=== PATIENT | female | born 1950 | race Caucasian/White ===

== ENCOUNTER → 2016-08-04 | Outpatient (CLI) | payer OTHER ==
[~2016-08-04] VITALS: Ht 165.1 cm; Wt 124.2 kg
[~2016-08-04] MED LIST: BIOFTAB PO; CELE200C PO; CIPR-9 PO; DEXTROSE 5% IN WATE 1000ML INJ 1,000 ML IV SCH; DOXY100T PO; FERR325T PO; INSULIN HUMAN REGULAR 1,000 UNITS/10 ML VIAL SQ PRN; LACTATED RINGER'S 1000 ML IV SCH; LEVO100T5 PO; LOSA50TA PO; MELO7.5T4 PO; METOPROLOL TARTRATE 25 MG TAB PO PRN; MILKSUS PO; MIRA33504 PO; MULT1TAB99 PO; PROPOFOL 200 MG/20 ML AMP IV ONE; PROT40TA PO; SODIUM CHLORID 0.9% 500 ML IV SCH; ZOFR4TAB3 SL; ferrous sulfate
[2016-08-04 06:00] VITALS: BP 116/55; PULSE 92; RESP 18; TEMP 97.8; O2SAT 97
[2016-08-04 08:06] VITALS: TEMP 97.6
--- NOTE | 2016-08-04 08:07 | EKG ---
Date Performed: 08/04/2016 Time Performed: 06:25:35 PTAGE: 65 years EKG: Sinus rhythm BORDERLINE LEFT AXIS DEVIATION BORDERLINE ECG NO PREVIOUS TRACING DOCTOR: Case Chery Interpretating Date/Time 08/04/2016 08:05:56
[2016-08-04 08:24] VITALS: BP 146/68; PULSE 61; RESP 16; O2SAT 93
--- NOTE | 2016-08-10 17:56 | MR ---
cc: FRANCISCO VASQUEZ MD DATE: 08/04/2016 PREOPERATIVE DIAGNOSIS 1. Family history colon cancer 2. Personal history of polyps. 3. Family history of polyps. 4. High risk screening. PROCEDURE: Attempted total colonoscopy to the ascending colon. PROCEDURE COURSE: The patient was brought to the colonoscopy suite and placed in the left lateral decubitus position. After IV sedation, digital examination was performed. The colonoscope was introduced into the anus and advanced through the colon. The patient was noted to have quite a bit of stool throughout the colon, particularly on the right side. I was able to enter the ascending colon, but multiple attempts to enter the cecum were unsuccessful. However eventually with the amount of stool, I felt that I was not able to get good visualization. There was a hint of possibly a small 2-3 mm polyp at the cecum but I could not visualize due to the stool. The colonoscope was then withdrawn with notation of extensive sequeira colonic diverticulosis but again visualization was incomplete due to the large stool burden. IMPRESSION Inadequate prep. PLAN We will attempt to finish off her prep today and see if we can reschedule her for tomorrow. Thank you very much MD MARIA DOLORES [place]/best /8:06 AM /5:42 PM MTDD
== END ==
LOC: HEND 05:51
PROVIDERS: ATTEND Colon & Rectal Surgery
DX: Z12.11 Encounter for screening for malignant neoplasm of colon (principal); Z80.0 Family history of malignant neoplasm of digestive organs; Z83.71 Family history of colonic polyps; Z86.010 Personal history of colon polyps; K57.30 Diverticulosis of large intestine without perforation or abscess without bleeding; I10 Essential (primary) hypertension
CPT/HCPCS: 93005

== ENCOUNTER → 2016-08-05 | Outpatient (CLI) | payer OTHER ==
[~2016-08-05] VITALS: Ht 165.1 cm; Wt 121.7 kg
[2016-08-05 14:47] VITALS: BP 129/81; PULSE 93; RESP 18; TEMP 98.5; O2SAT 94
[2016-08-05 16:56] VITALS: TEMP 97.6
[2016-08-05 17:18] VITALS: BP 110/58; PULSE 81; RESP 16; O2SAT 100
== END ==
LOC: HEND 14:06
PROVIDERS: ATTEND Colon & Rectal Surgery
DX: Z12.11 Encounter for screening for malignant neoplasm of colon (principal); Z80.0 Family history of malignant neoplasm of digestive organs; Z86.010 Personal history of colon polyps; K57.30 Diverticulosis of large intestine without perforation or abscess without bleeding; I10 Essential (primary) hypertension

== ENCOUNTER 2016-11-18 15:39 | Observation (INO) | payer OTHER ==
[~2016-11-18] VITALS: Ht 165.1 cm; Wt 123.0 kg
[~2016-11-18 15:39] MED LIST changes: -CELE200C PO; -DEXTROSE 5% IN WATE 1000ML INJ 1,000 ML IV SCH; -DOXY100T PO; -FERR325T PO; -INSULIN HUMAN REGULAR 1,000 UNITS/10 ML VIAL SQ PRN; -LACTATED RINGER'S 1000 ML IV SCH; -METOPROLOL TARTRATE 25 MG TAB PO PRN; -PROPOFOL 200 MG/20 ML AMP IV ONE; -PROT40TA PO; -SODIUM CHLORID 0.9% 500 ML IV SCH; -ZOFR4TAB3 SL; -ferrous sulfate
[2016-11-18 15:40] VITALS: BP 128/60; PULSE 118; RESP 20; TEMP 98.1; O2SAT 94
--- NOTE | 2016-11-18 16:12 | PD ---
Physical Exam Date Seen by Provider: November 18, 2016 Time Seen by Provider: 16:10 Narrative Pt presents for evaluation of rectal bleeding and dark stools. Pt states she has had a drop in hemoglobin from 12->8. Pt states she is passing blood clots. Pt reports slight dizziness, no SOB. No excessive use of NSAID's or ASA. VSS, awaiting bed placement. Pt sent by her PCP Ramakrishna. Data Data Last Documented VS Vital Signs Date Time Temp Pulse Resp B/P Pulse Ox O2 Delivery O2 Flow Rate FiO2 11/18/16 15:40 98.1 118 20 128/60 94 Room Air MDM Supervised Visit with MARTINA: Liseth Yoder November 18, 2016 16:12
[2016-11-18 18:16] LABS: BASOPHIL # 0.1 TH/MM3 (0-0.2); BASOPHIL % 0.6 % (0.0-2.0); EOSINOPHIL # 0.2 TH/MM3 (0-0.4); EOSINOPHIL % 1.5 % (0.0-4.0); HEMATOCRIT 30.1 % (35.0-46.0); HEMO FLAGS DIFF FINAL; LYMPH % 28.6 % (9.0-44.0); LYMPHOCYTE # 3.2 TH/MM3 (1.0-4.8); MEAN CELL VOLUME 88.2 FL (80.0-100.0); MEAN CORPUSCULAR HEMOGLOBIN 28.2 PG (27.0-34.0); MONO % 6.4 % (0.0-8.0); NEUT % 62.9 % (16.0-70.0); PLATELET COUNT 223 TH/MM3 (150-450); RED BLOOD COUNT 3.41 MIL/MM3 (4.00-5.30); RED CELL DISTRIBUTION WIDTH 15.4 % (11.6-17.2); WHITE BLOOD COUNT 11.2 TH/MM3 (4.0-11.0)
--- NOTE | 2016-11-18 18:27 | PD ---
HPI Chief Complaint: Bleeding Time Seen by Provider: 17:16 Travel History International Travel<30 days: No Contact w/Intl Traveler<30days: No Traveled to known affect area: No History of Present Illness HPI This is a 66 year old female who presents with rectal bleeding. The patient went to her primary care physician today for a urinary tract infection one week ago. Towards the end of her course of ciprofloxacin she started to notice bright red blood in the toilet. She denies any abdominal pain, diarrhea, fevers , or chills. Pt. does report more fatigue than usual. Her primary care physician did a digital rectal exam today and noted bright bloody stool. He noted that her hbg went 12.4 ->8.6. PFSH Past Medical History Cancer: No Cardiovascular Problems: Yes Diabetes: No Diminished Hearing: No Endocrine: No Genitourinary: No Hepatitis: No Hiatal Hernia: No Hypertension: Yes Immune Disorder: No Musculoskeletal: Yes (OA) Neurologic: No Psychiatric: No Reproductive: No Respiratory: No Immunizations Current: Yes Thyroid Disease: Yes Menopausal: Yes Past Surgical History Surgical History: No Previous Surgery AICD: No Joint Replacement: No Pacemaker: No Social History Alcohol Use: Yes (OCCASIONALLY) Tobacco Use: No Substance Use: No Allergies-Medications (Allergen,Severity, Reaction): Coded Allergies: No Known Allergies (Verified , 11/18/16) Reported Meds & Prescriptions Reported Meds & Active Scripts Active Meloxicam 7.5 Mg Tab 7.5 Mg PO DAILY Reported Hair Skin and Nails Formu (Multiple Vitamins W/ Minerals) 1 Tab Tab 2 Tab PO DAILY Bioflex (Bioflavonoid Products) 1 Tab 1 Tab PO DAILY Levothyroxine (Levothyroxine Sodium) 100 Mcg Tab 100 Mcg PO DAILY Losartan (Losartan Potassium) 50 Mg Tab 50 Mg PO DAILY Review of Systems Except as stated in HPI: all other systems reviewed are Neg Physical Exam Narrative GENERAL:Well appearing, no acute distress SKIN: Focused skin assessment warm and dry. HEAD: Atraumatic. Normocephalic. EYES: Pupils equal and round. No injection or drainage. ENT: Moist mucous membranes NECK: Trachea midline. CARDIOVASCULAR: Regular rate and rhythm. No murmur appreciated. RESPIRATORY: Clear to auscultation. Breath sounds equal bilaterally. GASTROINTESTINAL: Abdomen soft, non-tender, nondistended. MUSCULOSKELETAL: No obvious deformities. NEUROLOGICAL: Awake and alert. No obvious cranial nerve deficits.Moving all extremities. PSYCHIATRIC: Appropriate mood and affect; insight and judgment normal. Data Data Last Documented VS Vital Signs Date Time Temp Pulse Resp B/P Pulse Ox O2 Delivery O2 Flow Rate FiO2 11/18/16 18:49 94 18 122/66 95 11/18/16 15:40 98.1 Room Air Orders Complete Blood Count With Diff (11/18/16 17:16) Comprehensive Metabolic Panel (11/18/16 17:16) ^ Insert Iv (11/18/16 17:16) Prothrombin Time / Inr (Pt) (11/18/16 17:16) Act Partial Throm Time (Ptt) (11/18/16 17:16) Type And Screen (11/18/16 17:16) Admit Order (Ed Use Only) (11/18/16 18:59) Labs Laboratory Tests Test 11/18/16 18:00 White Blood Count 11.2 TH/MM3 Red Blood Count 3.41 MIL/MM3 Hemoglobin 9.6 GM/DL Hematocrit 30.1 % Mean Corpuscular Volume 88.2 FL Mean Corpuscular Hemoglobin 28.2 PG Mean Corpuscular Hemoglobin 32.0 % Concent Red Cell Distribution Width 15.4 % Platelet Count 223 TH/MM3 Mean Platelet Volume 9.8 FL Neutrophils (%) (Auto) 62.9 % Lymphocytes (%) (Auto) 28.6 % Monocytes (%) (Auto) 6.4 % Eosinophils (%) (Auto) 1.5 % Basophils (%) (Auto) 0.6 % Neutrophils # (Auto) 7.0 TH/MM3 Lymphocytes # (Auto) 3.2 TH/MM3 Monocytes # (Auto) 0.7 TH/MM3 Eosinophils # (Auto) 0.2 TH/MM3 Basophils # (Auto) 0.1 TH/MM3 CBC Comment DIFF FINAL Differential Comment Prothrombin Time 10.8 SEC Prothromb Time International 1.0 RATIO Ratio Activated Partial 24.4 SEC Thromboplast Time Sodium Level 142 MEQ/L Potassium Level 4.2 MEQ/L Chloride Level 108 MEQ/L Carbon Dioxide Level 26.9 MEQ/L Anion Gap 7 MEQ/L Blood Urea Nitrogen 18 MG/DL Creatinine 0.72 MG/DL Estimat Glomerular Filtration 81 ML/MIN Rate Random Glucose 80 MG/DL Calcium Level 8.7 MG/DL Total Bilirubin 0.3 MG/DL Aspartate Amino Transf 47 U/L (AST/SGOT) Alanine Aminotransferase 48 U/L (ALT/SGPT) Alkaline Phosphatase 86 U/L Total Protein 7.3 GM/DL Albumin 3.5 GM/DL Blood Type O POSITIVE Antibody Screen NEGATIVE Blood Bank Comment MDM Medical Decision Making Medical Screen Exam Complete: Yes Emergency Medical Condition: Yes Interpretation(s) afebrile, tachycardic, normotensive leukocytosis anemia Electrolytes are reassuring Differential Diagnosis Diverticulosis, hemorrhoids, polyp, colon cancer Narrative Course This is a 66-year-old female who presents to the emergency department with rectal bleeding. She evidently has a hemoglobin that has trended down from 12- 9. She is placed on a monitor and an IV was established. Labs are consistent with anemia. Patient will be admitted for likely colonoscopy and serial hemoglobin checks. Physician Communication Physician Communication Discussed with Dr. Nolen Diagnosis Primary Impression: Rectal bleeding Admitting Information Admitting Physician Requests: Observation Elayne Clark MD November 18, 2016 18:27
[2016-11-18 18:32] LABS: APTT (PATIENT) 24.4 SEC (24.3-30.1); PROTHROMBIN TIME - PATIENT 10.8 SEC (9.8-11.6)
[2016-11-18 18:35] LABS: ALT (GPT) 48 U/L (10-53); ANION GAP 7 MEQ/L (5-15); AST (GOT) 47 U/L (15-37); BICARBONATE 26.9 MEQ/L (21.0-32.0); BLOOD UREA NITROGEN 18 MG/DL (7-18); CHLORIDE 108 MEQ/L (98-107); GLOMERULAR FILTRATION RATE 81 ML/MIN (>89); POTASSIUM 4.2 MEQ/L (3.5-5.1); SODIUM (NA) 142 MEQ/L (136-145)
[2016-11-18 18:37] LABS: ALKALINE PHOSPHATASE 86 U/L (45-117); TOTAL BILIRUBIN ADULT 0.3 MG/DL (0.2-1.0)
[2016-11-18 18:49] VITALS: BP 122/66; PULSE 94; RESP 18; O2SAT 95
--- NOTE | 2016-11-18 19:16 | HHI.HP ---
HPI Service Family Medicine Attending: Dr. Torres Primary Care Physician Franco Melton MD Admission Diagnosis rectal bleeding Diagnoses: International Travel<30 Days: No Contact w/Intl Traveler<30days: No Known Affected Area: No History of Present Illness 66yo female presented to ED, sent from Family Medicine office with rectal bleeding. The patient was seen at our clinic last Tuesday for a UTI, which was treated with Cipro and has since resolved. At that time, she discussed using Miralax or Milk of Magnesia for constipation, which has been an issue since her July colonoscopy, which was normal per patient. A family member of the patient had Colace, so she took that instead on Tuesday. On Tuesday, she noticed dark stool with blood mixed in. She continued to take the Colace on Tuesday and Tuesday, and then stopped. She did not take Miralax or Milk of Magnesia. Her dark stools with blood mixed in persisted, and yesterday and today she noticed dime-sized clots in her stool. She reports increased frequency of stools (2-3/day) and increased rectal urgency. The patient's mother was diagnosed with colon cancer at age 60 and from this shortly after diagnosis. She denies daily use of anti-coagulant medications, but reports periodic use of aspirin. She denies nausea, vomiting, abdominal pain , pain with bowel movements, fever, chills, or weight loss. Fingerstick Hemoglobin in [facility] office today was 8.6 (hemoglobin was 12.4 on 01/2016). Digital rectal exam today in office was notable for bright bloody stool. Review of Systems Constitutional: COMPLAINS OF: Fatigue, Dizziness, DENIES: Fever, Weight loss, Chills Eyes: DENIES: Blurred vision, Diplopia Respiratory: DENIES: Cough, Wheezing Cardiovascular: DENIES: Chest pain, Palpitations Gastrointestinal: COMPLAINS OF: Black stools, Bloody stools, Diarrhea, DENIES : Abdominal pain, Nausea, Vomiting Musculoskeletal: DENIES: Joint pain, Muscle aches, Stiffness Neurologic: DENIES: Headache, Paresthesias Other Past Family Social History Past Medical History Past Medical History: Hypertension Hypothyroidism Previous Surgeries: None Previous Injuries: Left foot fracture many years ago, details not recalled. Fractured pelvis 1966. Allergies: None Immunizations : Zostavax 12/20/12 Family history: Father age 67 ASCVD, mother age 60, colon cancer Patient is up-to-date with her colonoscopies, sees Dr. Shakira Obrien. Brother from lung cancer, one brother alive and well, one sister with fibromyalgia and multiple sclerosis. Son age 33 has insulin-dependent diabetes. Social history: Formally educated through one year of college. 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 Alcohol occasionally. Tobacco none, quit many years ago Illicit drugs: Denies Allergies: Coded Allergies: No Known Allergies (Verified , 11/18/16) Physical Exam Vital Signs Vital Signs Date Time Temp Pulse Resp B/P Pulse Ox O2 Delivery O2 Flow Rate FiO2 11/18/16 18:49 94 18 122/66 95 11/18/16 15:40 98.1 118 20 128/60 94 Room Air Physical Exam GENERAL: Sitting up in bed, NAD, well appearing SKIN: Warm and dry. No rashes. HEAD: Normocephalic. EYES: No scleral icterus. No injection or drainage. NECK: Supple, trachea midline. No JVD or lymphadenopathy. CARDIOVASCULAR: Tachycardic with normal rhythm. No murmurs. RESPIRATORY: Breath sounds equal bilaterally. No accessory muscle use. CTAB GASTROINTESTINAL: +BS. Abdomen soft, non-tender, nondistended. EXTREMITIES: No cyanosis, or edema. NEUROLOGICAL: Awake, alert, and oriented x 3. Non-focal. Laboratory Laboratory Tests Test 11/18/16 18:00 White Blood Count 11.2 Red Blood Count 3.41 Hemoglobin 9.6 Hematocrit 30.1 Mean Corpuscular Volume 88.2 Mean Corpuscular Hemoglobin 28.2 Mean Corpuscular Hemoglobin 32.0 Concent Red Cell Distribution Width 15.4 Platelet Count 223 Mean Platelet Volume 9.8 Neutrophils (%) (Auto) 62.9 Lymphocytes (%) (Auto) 28.6 Monocytes (%) (Auto) 6.4 Eosinophils (%) (Auto) 1.5 Basophils (%) (Auto) 0.6 Neutrophils # (Auto) 7.0 Lymphocytes # (Auto) 3.2 Monocytes # (Auto) 0.7 Eosinophils # (Auto) 0.2 Basophils # (Auto) 0.1 CBC Comment DIFF FINAL Differential Comment Prothrombin Time 10.8 Prothromb Time International 1.0 Ratio Activated Partial 24.4 Thromboplast Time Sodium Level 142 Potassium Level 4.2 Chloride Level 108 Carbon Dioxide Level 26.9 Anion Gap 7 Blood Urea Nitrogen 18 Creatinine 0.72 Estimat Glomerular Filtration 81 Rate Random Glucose 80 Calcium Level 8.7 Total Bilirubin 0.3 Aspartate Amino Transf 47 (AST/SGOT) Alanine Aminotransferase 48 (ALT/SGPT) Alkaline Phosphatase 86 Total Protein 7.3 Albumin 3.5 Blood Type O POSITIVE Antibody Screen NEGATIVE Blood Bank Comment Result Diagram: 11/18/16 1800 11/18/16 1800 Assessment and Plan Assessment and Plan 66 year old female who presents with rectal bleeding, anemia and increased stools after being on Ciprofloxacin 1 week ago for UTI which has now resolved. Code Status Full Discussed Condition With SDW Dr. Judy Clark Problem List: (1) Rectal bleeding Status: Acute Plan: Differential Diagnosis: Diverticulosis, hemorrhoids, C. Difficile, colon cancer -Afebrile, tachycardic, normotensive -CBC with Hg 9.6. Was 12.4 in January 2016 -Leukocytosis of 11.2 -CMP normal Plan: -GI consulted, likely Colonoscopy in am -Protonix 40mg IV daily -Recheck CBC in am -Hemoccult ordered -C. Difficile ordered -Zofran PRN -Tylenol PRN (2) Hypertension, benign Status: Chronic Plan: BP 122/66 Continue home Cozaar 50 mg daily (3) Hypothyroidism Status: Chronic Plan: Continue home Synthroid 100 mcg daily (4) Nutrition, metabolism, and development symptoms Status: Chronic Plan: Fluids: NS at 125 cc/hr Electrolytes: normal, recheck BMP in am Nutrition: regular diet for dinner, NPO after midnight with PO meds Problem Qualifiers (1) Hypothyroidism: Qualified Code: E03.9 - Hypothyroidism, unspecified type Yola Nolen MD November 18, 2016 19:16
[2016-11-18] MEDS ORDERED: PEG (High)/E-LYTE SOLN 4000 ML BTL PO ONE ×2 (19:45→19:48)
[2016-11-18] MEDS ORDERED: SODIUM CHLORIDE 0.9% FLUSH 10 ML FLUSH IV FLUSH PRN (19:45)
[2016-11-18] MEDS ORDERED: ONDANSETRON HCL 4 MG/2 ML VIAL IV PRN (20:00)
[2016-11-18 20:39] VITALS: BP 122/65; PULSE 93; RESP 18; TEMP 98.1; O2SAT 100
[2016-11-18] MEDS: SODIUM CHLOR 0.9% 1000 ML INJ 1,000 ML IV SCH (20:46)
[2016-11-18] MEDS: PANTOPRAZOLE SODIUM 40 MG VIAL IV SCH (20:46)
[2016-11-18 20:58] VITALS: BP 128/58; PULSE 95; RESP 18; TEMP 98.7; O2SAT 92
[2016-11-18] MEDS: SODIUM CHLORIDE 0.9% FLUSH 10 ML FLUSH IV FLUSH SCH (21:16)
[2016-11-18 23:29] LABS: C. DIFF EPI 027 PRESUMPTIVE NEGATIVE (NEGATIVE); C. DIFF TOXIN PCR NEGATIVE (NEGATIVE)
[2016-11-18 23:47] VITALS: BP 122/69; PULSE 92; RESP 18; TEMP 98.4; O2SAT 98
[2016-11-19] VITALS (7 sets, daily range): BP systolic 112–139; BP diastolic 51–68; PULSE 68–92; RESP 15–23; TEMP 96.1–97.9; O2SAT 94–98
[2016-11-19] MEDS: LEVOTHYROXINE SODIUM 100 MCG TAB PO SCH (06:06)
[2016-11-19] MEDS: SODIUM CHLOR 0.9% 1000 ML INJ 1,000 ML IV SCH ×2 (06:07→11:33)
[2016-11-19 07:21] LABS: AUTOMATED NEUTROPHIL # 5.4 TH/MM3 (1.8-7.7); BASOPHIL % 0.5 % (0.0-2.0); EOSINOPHIL # 0.2 TH/MM3 (0-0.4); EOSINOPHIL % 2.2 % (0.0-4.0); HEMATOCRIT 24.9 % (35.0-46.0); HEMO FLAGS DIFF FINAL; LYMPH % 26.8 % (9.0-44.0); LYMPHOCYTE # 2.3 TH/MM3 (1.0-4.8); MEAN CELL VOLUME 87.3 FL (80.0-100.0); MEAN CORPUSCULAR HGB CONC 33.2 % (32.0-36.0); MONO % 6.4 % (0.0-8.0); NEUT % 64.1 % (16.0-70.0); PLATELET COUNT 185 TH/MM3 (150-450); RED BLOOD COUNT 2.85 MIL/MM3 (4.00-5.30); RED CELL DISTRIBUTION WIDTH 15.5 % (11.6-17.2); WHITE BLOOD COUNT 8.5 TH/MM3 (4.0-11.0)
[2016-11-19 07:59] LABS: BICARBONATE 26.1 MEQ/L (21.0-32.0); POTASSIUM 3.6 MEQ/L (3.5-5.1)
[2016-11-19] MEDS: SODIUM CHLORIDE 0.9% FLUSH 10 ML FLUSH IV FLUSH SCH ×2 (08:00→21:00)
[2016-11-19] MEDS: PANTOPRAZOLE SODIUM 40 MG VIAL IV SCH (08:00)
[2016-11-19] MEDS: LOSARTAN 50 MG TAB PO SCH (08:00)
--- NOTE | 2016-11-19 08:16 | PD.CONS ---
HPI History of Present Illness This is a 66 year old female who presented to the ER for evaluation of rectal bleeding. She has a family hx of colon cancer (mother diagnosed at age 60) and gets regular colonoscopies. She has had colon polyps in the past, but reports she did not have any on her last colonoscopy. She had a screening colonoscopy in July and reports that her bowels have "not been right since." She states she has had some issues with constipation since her colonoscopy. The only new medication during this time was Synthroid. She started having bloody diarrhea last Tuesday, with 2-3 loose bowels mixed with bright red blood per day. She denies any associated nausea, vomiting, abdominal pain, rectal pain. She does have GERD and states that she typically has symptoms about twice a week and that she takes Pepcid AC as needed. This seems to work well for her. She is on Meloxicam, but does not take any other blood thinners. She denies recent travel, sick contacts, suspicious food. She was recently treated with Cipro x 5 days for a UTI last Tuesday. She denies any hx of PUD. (Malika Johnson) PFSH Past Medical History Hypertension Hypothyroidism Past Surgical History Colonoscopy [address] Obrien (Malika Johnson) Coded Allergies: No Known Allergies (Verified , 11/18/16) Medications Allergies Coded Allergies Type Severity Reaction Last Updated Verified No Known Allergies 11/18/16 Yes Active Scripts Medications Dose Route/Sig Days Date Category Meloxicam 7.5 Mg Tab 7.5 Mg PO DAILY 11/11/16 Rx Hair Skin and Nails Formu (Multiple Vitamins W/ Minerals) 1 Tab Tab 2 Tab PO DAILY 08/05/16 Reported Bioflex (Bioflavonoid Products) 1 Tab 1 Tab PO DAILY 08/05/16 Reported Levothyroxine (Levothyroxine Sodium) 100 Mcg Tab 100 Mcg PO DAILY 05/10/16 Reported Losartan (Losartan Potassium) 50 Mg Tab 50 Mg PO DAILY 05/10/16 Reported Family History Father from heart disease Mother age 60, colon cancer Brother from lung cancer, one brother alive and well, one sister with fibromyalgia and multiple sclerosis. Son age 33 has insulin-dependent diabetes. Social History No use of tobacco, occasional ETOH use. (Malika Johnson) Review of Systems Constitutional: DENIES: Fatigue, Fever, Weight loss, Chills, Change in appetite Cardiovascular: DENIES: Chest pain Gastrointestinal: COMPLAINS OF: Bloody stools, Constipation, Diarrhea, Heartburn, DENIES: Abdominal pain, Nausea, Vomiting, Swelling of Abdomen Musculoskeletal: COMPLAINS OF: Joint pain, Back pain Integumentary: DENIES: Rash Hematologic/lymphatic: DENIES: Bruising Neurologic: DENIES: Headache Psychiatric: DENIES: Confusion (Malika Johnson) GI Exam Vitals I&O Vital Signs Date Time Temp Pulse Resp B/P Pulse Ox O2 Delivery O2 Flow Rate FiO2 11/19/16 07:20 97.7 89 20 112/51 96 11/19/16 04:15 97.8 87 18 139/68 97 11/18/16 23:47 98.4 92 18 122/69 98 11/18/16 20:58 98.7 95 18 128/58 92 11/18/16 20:39 98.1 93 18 122/65 100 Room Air 11/18/16 18:49 94 18 122/66 95 11/18/16 15:40 98.1 118 20 128/60 94 Room Air I/O 11/18/16 11/18/16 11/18/16 11/19/16 11/19/16 11/19/16 06:59 14:59 22:59 06:59 14:59 22:59 # Voids 1 Laboratory Test 11/18/16 11/18/16 11/19/16 18:00 21:50 05:56 White Blood Count 11.2 TH/MM3 8.5 TH/MM3 Red Blood Count 3.41 MIL/MM3 2.85 MIL/MM3 Hemoglobin 9.6 GM/DL 8.3 GM/DL Hematocrit 30.1 % 24.9 % Mean Corpuscular Volume 88.2 FL 87.3 FL Mean Corpuscular Hemoglobin 28.2 PG 29.0 PG Mean Corpuscular Hemoglobin 32.0 % 33.2 % Concent Red Cell Distribution Width 15.4 % 15.5 % Platelet Count 223 TH/MM3 185 TH/MM3 Mean Platelet Volume 9.8 FL 10.2 FL Neutrophils (%) (Auto) 62.9 % 64.1 % Lymphocytes (%) (Auto) 28.6 % 26.8 % Monocytes (%) (Auto) 6.4 % 6.4 % Eosinophils (%) (Auto) 1.5 % 2.2 % Basophils (%) (Auto) 0.6 % 0.5 % Neutrophils # (Auto) 7.0 TH/MM3 5.4 TH/MM3 Lymphocytes # (Auto) 3.2 TH/MM3 2.3 TH/MM3 Monocytes # (Auto) 0.7 TH/MM3 0.5 TH/MM3 Eosinophils # (Auto) 0.2 TH/MM3 0.2 TH/MM3 Basophils # (Auto) 0.1 TH/MM3 0.0 TH/MM3 CBC Comment DIFF FINAL DIFF FINAL Differential Comment Prothrombin Time 10.8 SEC Prothromb Time International 1.0 RATIO Ratio Activated Partial 24.4 SEC Thromboplast Time Sodium Level 142 MEQ/L 144 MEQ/L Potassium Level 4.2 MEQ/L 3.6 MEQ/L Chloride Level 108 MEQ/L 108 MEQ/L Carbon Dioxide Level 26.9 MEQ/L 26.1 MEQ/L Anion Gap 7 MEQ/L 10 MEQ/L Blood Urea Nitrogen 18 MG/DL 14 MG/DL Creatinine 0.72 MG/DL 0.64 MG/DL Estimat Glomerular Filtration 81 ML/MIN 92 ML/MIN Rate Random Glucose 80 MG/DL 105 MG/DL Calcium Level 8.7 MG/DL 7.8 MG/DL Total Bilirubin 0.3 MG/DL Aspartate Amino Transf 47 U/L (AST/SGOT) Alanine Aminotransferase 48 U/L (ALT/SGPT) Alkaline Phosphatase 86 U/L Total Protein 7.3 GM/DL Albumin 3.5 GM/DL Blood Type O POSITIVE Antibody Screen NEGATIVE Blood Bank Comment Stool C. difficile Toxin (PCR) NEGATIVE Stl C. difficile Toxin PRESUMPTIVE Epiderm 027 NEGATIVE Date/Time Procedure Status Source Growth 11/18/16 21:50 Stool Occult Blood (AMINA) - Final Complete Stool Stool HEMOCCULT POSITIVE 11/18/16 19:50 Stool Occult Blood (AMINA) Received Stool Stool Pending Physical Examination HEENT: Normocephalic; atraumatic; no jaundice. CHEST: CTA CARDIAC: RRR ABDOMEN: Soft, nondistended, nontender; no hepatosplenomegaly; bowel sounds are present in all four quadrants. EXTREMITIES: No clubbing, cyanosis, or edema. SKIN: Normal; no rash; no jaundice. PURCHASING SUPERVISOR: No focal deficits; alert and oriented times three. (Malika Johnson) Assessment and Plan Plan ASSESSMENT: - GI Bleeding. Pt reports bloody diarrhea with bright red blood since Tuesday, having 2-3 episodes per day. Of note, she mentioned to the attending group that this started as black tarry stool and then went to bright red blood. She reports that there is a large amount with each bowel movement. She has a family hx of colon cancer and a personal hx of colon polyps and gets colonoscopies with Dr. Obrien q5 years. Her last colonoscopy was July of 2016 and she reports that she had diverticulosis but no polyps on this exam. She continued to have bloody bowel movements overnight. HH 8.3/24.9. PPI. - Diarrhea. Sudden onset with 2-3 bloody stools per day. No recent travel, suspicious food intake, sick contacts. (+) Cipro use last week for UTI. CDiff negative. - Anemia, acute blood loss. 8.3/24.9. - HTN, Hypothyroidism,per primary PLAN: - Plan for egd/colonoscopy today - Obtain consents - NPO - S/P Golytely prep - Monitor HH - Transfuse as necessary - Further recommendations to follow based on results of above - Pt seen and examined by Dr. Lozano and myself and this note is written on her behalf (Malika Johnson) Physician Comments seen, examined agree with above (Krystle Lozano MD) Malika Johnson November 19, 2016 08:16 Krystle Lozano MD November 19, 2016 17:16
--- NOTE | 2016-11-19 09:33 | HHI.FPPN ---
Subjective Remarks Patient was seen and evaluated this morning. She has been npo and received GoLYTELY bowel prep overnight and states her stools are still bloody. She was updated on her hemoglobin dropped from 9-8 approximately overnight. General neurology team evaluated the patient this morning and plan is to perform EGD as well as colonoscopy this morning. The patient does deny any new symptoms and denies fever, chills, abdominal pain, chest pain, shortness of breath. ( Charissa Obrien MD R1) Objective Vitals Vital Signs Date Time Temp Pulse Resp B/P Pulse Ox O2 Delivery O2 Flow Rate FiO2 11/19/16 09:15 97.8 79 18 126/56 95 11/19/16 07:20 97.7 89 20 112/51 96 11/19/16 04:15 97.8 87 18 139/68 97 11/18/16 23:47 98.4 92 18 122/69 98 11/18/16 20:58 98.7 95 18 128/58 92 11/18/16 20:39 98.1 93 18 122/65 100 Room Air 11/18/16 18:49 94 18 122/66 95 11/18/16 15:40 98.1 118 20 128/60 94 Room Air I/O 11/18/16 11/18/16 11/18/16 11/19/16 11/19/16 11/19/16 07:00 15:00 23:00 07:00 15:00 23:00 # Voids 1 (Charissa Obrien MD R1) Result Diagram: 11/19/16 0556 11/19/16 0556 Objective Remarks GENERAL: Patient is an obese elderly female lying in supine position in no apparent distress. SKIN: Warm and dry. No obvious rashes or bruises noted. HEAD: Atraumatic. Normocephalic. EYES: PEERL. No scleral icterus. No injection or drainage. ENT: No nasal bleeding or discharge. Mucous membranes pink and moist. No tonsillar swelling or erythema NECK: Trachea midline. No JVD. CARDIOVASCULAR: Regular rate and rhythm. No murmurs auscultated. Pulses 2+ in upper and lower extremities bilaterally. EKG evaluated at bedside showing normal sinus rhythm RESPIRATORY: No accessory muscle use. Clear to auscultation without crackles or wheezes. Breath sounds equal bilaterally. GASTROINTESTINAL: Abdomen obese, soft, no tenderness to palpation today. Bowel sounds are normal in all 4 quadrants. Spleen and liver margins not palpable MUSCULOSKELETAL: Extremities without clubbing, cyanosis, or edema. No obvious deformities. NEUROLOGICAL: Awake and alert. No obvious cranial nerve deficits. Motor grossly within normal limits. Five out of 5 muscle strength in the arms and legs. Normal speech. PSYCHIATRIC: Appropriate mood and affect; insight and judgment normal. Medications and IVs Inpatient Medications Acetaminophen (Tylenol) 650 mg Q4H PRN PO Temp > 100.4; Start 11/18/16 at 20:00 Levothyroxine Sodium (Synthroid) 100 mcg DAILY@06 PO Last administered on 06:06; Start 11/19/16 at 06:00 Losartan Potassium (Cozaar) 50 mg DAILY PO Last administered on 11/19/16 08:00 ; Start 11/19/16 at 09:00 Ondansetron HCl (Zofran Inj) 4 mg Q6H PRN IV NAUSEA; Start 11/18/16 at 20:00 Pantoprazole Sodium (Protonix Inj) 40 mg DAILY IV Last administered on 08:00; Start 11/18/16 at 20:00 Polyethylene Glycol/ Electrolytes (Colyte Liq) 4,000 ml ONCE ONCE PO Last administered on 11/18/16 21:07; Start 11/18/16 at 19:48; Stop 11/18/16 at 19:49 ; Status DC Sodium Chloride (NS 1000 ml Inj) 1,000 ml @ 125 mls/hr Q8H IV Last administered on 11/19/16 06:07; Start 11/18/16 at 19:33 Sodium Chloride (NS Flush) 2 ml BID IV FLUSH Last administered on 11/19/16 08: 00; Start 11/18/16 at 21:00 (Charissa Obrien MD R1) Urinary Catheter: No (Charissa Obrien MD R1) Vascular Central Line Catheter: No (Charissa Obrien MD R1) A/P Assessment and Plan 66 year old female who presents with rectal bleeding, anemia and increased stools after being on Ciprofloxacin 1 week ago for UTI. Discharge Planning Possibly in 12 days, pending results of panendoscopy on 11/19 (Charissa Obrien MD R1) Attending Attestation Patient seen and examined. Case reviewed and discussed with the resident team. Agree with plan of care as discussed with me and documented in the resident note. she is eager to go home and feels clinically well. (Farhana Torres MD) Problem List: (1) Rectal bleeding Status: Acute Plan: Panendoscopy scheduled 11/19. H&H downtrending, 8.3/24.9 today. We'll monitor with serial H&H's, await results of scopes Hospital course: * Bright red blood per rectum noted on patient clinical evaluation on 11/18, sent to ED. * Patient with acute onset bright red blood per rectum, also mixed with stools * Differential Diagnosis: Diverticulosis, hemorrhoids, C. Difficile, viral gastroenteritis, bacterial gastroenteritis, parasite, colon cancer * Afebrile, tachycardic, normotensive * CBC with Hg 9.6. Was 12.4 in January 2016 * Leukocytosis of 11.2, resolved * CMP within normal limits * GI consulted, Panendoscopy scheduled 11/19 * Protonix 40mg IV daily * Hemoccult was positive * C. difficile toxin screen negative * Zofran and Tylenol PRN (2) Hypertension, benign Status: Chronic Plan: Chronic hypertension, on Cozaar 50 mg daily at home. BPs within normal limits, will continue home med We'll add clonidine 0.1 mg q6hr prn SBP greater than 180/100 (3) Hypothyroidism Status: Chronic Plan: Continue home Synthroid 100 mcg daily (4) Nutrition, metabolism, and development symptoms Status: Chronic Plan: Fluids: NS at 125 cc/hr Electrolytes: Monitor and replete as needed Nutrition: heart healthy diet after procedures DVT Prophylaxis: Hold pharmacological prophylaxis given active GI bleed, will start bilateral SCDs GI Prophylaxis: Protonix 40 mg IV daily (Charissa Obrien MD R1) Problem Qualifiers (1) Hypothyroidism: Qualified Code: E03.9 - Hypothyroidism, unspecified type Charissa Obrien MD R1 November 19, 2016 09:33 Farhana Torres MD November 20, 2016 13:08
[2016-11-19] MEDS ORDERED: MIDAZOLAM HCL 2 MG/2 ML VIAL IV ONE ×2 (09:34→10:00)
[2016-11-19] MEDS ORDERED: cloNIDine HCL 0.1 MG TAB PO PRN (09:45)
[2016-11-19] MEDS ORDERED: PROPOFOL 200 MG/20 ML AMP IV ONE (10:40)
--- NOTE | 2016-11-19 11:05 | GIPROC ---
[facility] [address] [facility]. [facility], [address] COLONOSCOPY PROCEDURE REPORT EXAM DATE: 11/19/2016 PATIENT NAME: Coco Burt MR #: [id number] BIRTHDATE: 1950 ENDOSCOPIST: Krystle Lozano MD ORDER #: [id number] [employer]ER [employer] REPAIRER: Joss Berumen SENIOR FACILITIES MANAGER STATUS: inpatient INDICATIONS: The patient is a 66 yr old female here for a colonoscopy due to bleeding, anemia PROCEDURE PERFORMED: Colonoscopy, diagnostic MEDICATIONS: None and Per Anesthesia. PREP QUALITY: 20 % obscured PREP TYPE:GoLytely ESTIMATED BLOOD LOSS: None CONSENT: The patient understands the risks and benefits of the procedure and understands that these risks include, but are not limited to: sedation, allergic reaction, infection, perforation and/or bleeding. Alternative means of evaluation and treatment include, among others: physical exam, x-rays, and/or surgical intervention. The patient elects to proceed with this endoscopic procedure. medical equipment was checked for proper function. Hand hygiene and appropriate measures for infection prevention was taken. After the risks, benefits and alternatives of the procedure were thoroughly explained, Informed consent was verified, confirmed and timeout was successfully executed by the treatment team. A digital exam revealed external hemorrhoids The endoscope was introduced through the anus and advanced to the cecum, which was identified by both the appendix and ileocecal valve. The instrument was then slowly withdrawn as the colon was fully examined. COLON FINDINGS: Severe pandiverticulosis , old bood in colon. Retroflexed views revealed internal hemorrhoids and Retroflexed views revealed small internal hemorrhoids The scope was then completely withdrawn from the patient and the procedure terminated. PROCEDURE WITHDRAWAL TIME:15minutes ADVERSE EVENTS: There were no complications. IMPRESSIONS: 1. Severe pandiverticulosis , old bood in colon 2. Retroflexed views revealed internal hemorrhoids 3. Retroflexed views revealed small internal hemorrhoids 4. Revealed external hemorrhoids RECOMMENDATIONS: Clear liquid bleeding scan transfuse prn RECALL: 1. as previously recommended 2. Colonoscopy Krystle Lozano MD eSigned: Krystle Lozano MD 11/19/2016 11:05 AM cc:
--- NOTE | 2016-11-19 11:11 | GIPROC ---
[facility] [address] [facility]. [facility], [address] EGD PROCEDURE REPORT EXAM DATE: 11/19/2016 PATIENT NAME: Coco Burt MR #: [id number] BIRTHDATE: 1950 ATTENDING: Krystle Lozano MD ORDER #: [id number] LEARNING DEVELOPER: Joss Berumen and Michelle Telles STATUS: inpatient INDICATIONS: The patient is a 66 yr old female here for an EGD due to gi bleeding PROCEDURE PERFORMED: EGD w/ biopsy MEDICATIONS: None and Per Anesthesia. TOPICAL ANESTHETIC: none CONSENT: The patient understands the risks and benefits of the procedure and understands that these risks include, but are not limited to: sedation, allergic reaction, infection, perforation and/or bleeding. Alternative means of evaluation and treatment include, among others: physical exam, x-rays, and/or surgical intervention. The patient elects to proceed with this endoscopic procedure. medical equipment was checked for proper function. Hand hygiene and appropriate measures for infection prevention was taken. After the risks, benefits and alternatives of the procedure were thoroughly explained, Informed consent was verified, confirmed and timeout was successfully executed by the treatment team. The patient was anesthetized with topical anesthesia and the EC-[id number] (Pedi C) endoscope was introduced through the mouth and advanced to the second portion of the duodenum. Retroflexed views revealed a hiatal hernia The gastroscope was then slowly withdrawn and removed. Duodenum second portion normal duodenitis duodenl bulb gastritis antrum-biopsy esophagitis distal esophagus hiatal hernia Schatzki's ring. ADVERSE EVENTS: There were no complications. IMPRESSIONS: 1. Duodenum second portion normal duodenitis duodenl bulb gastritis antrum-biopsy esophagitis distal esophagus hiatal hernia Schatzki's ring 2. Retroflexed views revealed a hiatal hernia RECOMMENDATIONS: 1. Anti-reflux regimen 2. Continue PPI 3. Avoid NSAIDS PATIENT CONDITION: stable DISPOSITION: Inpatient REPEAT EXAM: EGD Krystle Lozano MD eSigned: Krystle Lozano MD 11/19/2016 11:10 AM cc: PATIENT NAME: Coco Burt MR#: [id number]
--- NOTE | 2016-11-19 12:03 | EKG ---
Date Performed: 11/19/2016 Time Performed: 08:34:06 PTAGE: 66 years EKG: Sinus rhythm NORMAL ECG NO SIGNIFICANT CHANGE FROM PRIOR ELECTROCARDIOGRAM. PREVIOUS TRACING : 11/19/2016 08.33 DOCTOR: Case Chery Interpretating Date/Time 11/19/2016 12:01:59
[2016-11-19 12:15] LABS: HEMATOCRIT 24.8 % (35.0-46.0); REVIEW FLAG FINAL
--- NOTE | 2016-11-19 15:06 | RADRPT ---
EXAM DATE/TIME: 11/19/2016 12:52 [place] COMPARISON: No previous studies available for comparison. INDICATIONS : Rectal bleeding. DOSE: 21.2 mCi Tc99m Ultratag labeled red blood cells IV IMAGIN hr 45mins. MEDICAL HISTORY : Gastroesophageal reflux disease. Hypertension. SURGICAL HISTORY : None. ENCOUNTER: Initial ACUITY: 1 day PAIN SCALE: 0/10 LOCATION: lower quadrant TECHNIQUE: Following the modified in vitro labeling of autologous red cells, dynamic continuous images were acqu ired for the specified interval. FINDINGS: BIODISTRIBUTION: There is a very good labeling of red cells without significant uptake in the gastric wall. There is good delineation of the blood pool of the spleen and abdominal vessels. BLEEDING: No episodes of active GI bleeding are observed during specified interval of continuous observation. CONCLUSION: Negative exam. Pawan Breaux MD on November 19, 2016 at 15:03 Board Certified Radiologist. This report was verified electronically.
[2016-11-19] MEDS ORDERED: MORPHINE SULFATE 4 MG/ML INJ IV PUSH PRN (18:00)
[2016-11-19] MEDS: ACETAMINOPHEN 325 MG TAB PO PRN (18:54)
[2016-11-19 19:53] LABS: HEMATOCRIT 25.8 % (35.0-46.0); REVIEW FLAG FINAL
[2016-11-20 00:01] VITALS: BP 111/59; PULSE 72; RESP 20; TEMP 96.4; O2SAT 96
[2016-11-20] MEDS: SODIUM CHLOR 0.9% 1000 ML INJ 1,000 ML IV SCH ×3 (00:02→08:37)
[2016-11-20 01:29] LABS: REVIEW FLAG FINAL
[2016-11-20] MEDS: ACETAMINOPHEN 325 MG TAB PO PRN (04:23)
[2016-11-20 04:26] VITALS: BP 121/67; PULSE 68; RESP 20; TEMP 97.6; O2SAT 94
[2016-11-20] MEDS: LEVOTHYROXINE SODIUM 100 MCG TAB PO SCH (06:25)
[2016-11-20] MEDS: SODIUM CHLORIDE 0.9% FLUSH 10 ML FLUSH IV FLUSH SCH (08:37)
--- NOTE | 2016-11-20 08:47 | HHI.FPPN ---
Subjective Remarks Pt seen and examined this morning. AFVSS. No acute events overnight. Patient hasn't had a BM and denies any spontaneous rectal bleeding. She reports she feels well and would like to go home. Tolerating PO without abdominal pain, nausea, or vomiting. Ambulating. Denies CP/SOB. (Margi Zamudio MD) Objective Vitals Vital Signs Date Time Temp Pulse Resp B/P Pulse Ox O2 Delivery O2 Flow Rate FiO2 11/20/16 05:35 18 11/20/16 04:26 97.6 68 20 121/67 94 11/20/16 00:01 96.4 72 20 111/59 96 11/19/16 20:11 96.1 92 18 121/58 96 11/19/16 15:52 97.9 83 23 129/58 94 11/19/16 11:40 97.4 68 15 127/57 95 11/19/16 10:59 75 16 103/63 100 11/19/16 10:55 66 16 104/55 97 11/19/16 10:49 97.7 79 16 118/57 97 11/19/16 09:15 97.8 79 18 126/56 95 I/O 11/19/16 11/19/16 11/19/16 11/20/16 11/20/16 11/20/16 06:59 14:59 22:59 06:59 14:59 22:59 Intake Total 800 ml 480 ml Balance 800 ml 480 ml Intake Oral 480 ml IV Total 800 ml # Voids 7 # Bowel Movements 1 (Margi Zamudio MD) Result Diagram: 11/20/16 0108 11/19/16 0556 Imaging GI Bleed Scan Nuclear Medicine 11/19/16 0000 Signed Impressions: Service Date/Time: Saturday, November 19, 2016 12:52 - CONCLUSION: Negative exam. Pawan Breaux MD Objective Remarks GENERAL: WN, WD female sitting up in bed in good spirits. SKIN: Warm and dry without rash. HEENT: Pupils equal and round. No nasal drainage. MMM. HEART: RRR no m/r/g. LUNGS: CTAB without wheezes or crackles. ABDOMEN: Soft, NT, ND. EXTREMITIES: No LE edema. NEURO: Awake and alert. (Margi Zamudio MD) A/P Assessment and Plan 66 year old female admitted for rectal bleeding. GI consulted and patient underwent EGD/colonoscopy and yesterday showing duodenitis, esophagitis , gastritic, pandiverticulosis, and hemorrhoids; no active bleeding was seen. Bleeding scan was negative. Discharge Planning Likely D/C home today; will discuss with GI as patient may need further studies as an outpatient. (Margi Zamudio MD) Attending Attestation Patient seen and examined. Case reviewed and discussed with the resident team. Agree with plan of care as discussed with me and documented in the resident note. (Farhana Torres MD) Problem List: (1) Rectal bleeding Status: Acute Plan: Patient admitted for BRBPR with + Hemoccult. GI consulted. EGD and colonoscopy done on 11/19 showing gastritis, duodenitis, esophagitis, hiatal hernia, Schatski's ring, severe pandiverticulosis with old blood in the colon, and internal and external hemorrhoids. Bleeding scan negative. - Hemodynamically stable - H&H stabilized. Hg up to 8.9 from 8.0 - Coags WNL - Avoid NSAIDs - Protonix 40 mg IV daily (2) Hypertension, benign Status: Chronic Plan: Stable. Continue home Cozaar. (3) Hypothyroidism Status: Chronic Plan: Continue home Synthroid 100 mcg daily. (4) Nutrition, metabolism, and development symptoms Status: Chronic Plan: - Fluids: Tolerating PO - Electrolytes: WNL - Nutrition: Heart healthy diet - DVT Prophylaxis: Hold pharmacological prophylaxis given active GI bleed - GI Prophylaxis: Protonix 40 mg IV daily sdw Dr. Torres, Dr. Sasha Obrien, and Dr. Holbrook (Margi Zamudio MD) Problem Qualifiers (1) Hypothyroidism: Qualified Code: E03.9 - Hypothyroidism, unspecified type Margi Zamudio MD November 20, 2016 08:47 Farhana Torres MD November 20, 2016 13:09
[2016-11-20 09:21] LABS: AUTOMATED NEUTROPHIL # 5.3 TH/MM3 (1.8-7.7); BASOPHIL # 0.1 TH/MM3 (0-0.2); EOSINOPHIL # 0.2 TH/MM3 (0-0.4); EOSINOPHIL % 2.2 % (0.0-4.0); LYMPH % 26.5 % (9.0-44.0); LYMPHOCYTE # 2.2 TH/MM3 (1.0-4.8); MEAN CELL VOLUME 87.6 FL (80.0-100.0); MEAN CORPUSCULAR HEMOGLOBIN 28.9 PG (27.0-34.0); MONO % 6.2 % (0.0-8.0); NEUT % 64.1 % (16.0-70.0); PLATELET COUNT 212 TH/MM3 (150-450); RED BLOOD COUNT 3.08 MIL/MM3 (4.00-5.30); RED CELL DISTRIBUTION WIDTH 15.6 % (11.6-17.2); WHITE BLOOD COUNT 8.2 TH/MM3 (4.0-11.0)
[2016-11-20 09:24] LABS: HEMO FLAGS AUTO DIFF
[2016-11-20 09:56] LABS: BICARBONATE 25.9 MEQ/L (21.0-32.0); POTASSIUM 3.6 MEQ/L (3.5-5.1)
[2016-11-20 10:38] VITALS: BP 118/67; PULSE 78; RESP 18; TEMP 98.4; O2SAT 97
[2016-11-20] MEDS: PANTOPRAZOLE SODIUM 40 MG VIAL IV SCH (10:48)
[2016-11-20] MEDS: LOSARTAN 50 MG TAB PO SCH (10:48)
[2016-11-20 10:57] LABS: BANDS 5 % (0-6); EOSINOPHILS 3 % (0-4); METAMYELOCYTES 1 % (0-1); MYELOCYTES 2 % (0-0); NEUTROPHIL # MANUAL DIFF 5.9 TH/MM3 (1.8-7.7); POLYS (SEG NEUTROPHILS) 64 % (16-70); WBC DIFF SAMPLE 100
[2016-11-20 10:58] LABS: PLATELET ESTIMATE SMEAR NORMAL (NORMAL); PLATELET MORPHOLOGY NORMAL (NORMAL); SCAN/DIFF FINAL DIFF MANUAL
[2016-11-20] MEDS ORDERED: ZOFR4TAB3 SL (11:35)
[2016-11-20] MEDS ORDERED: PROT40TA PO (11:35)
--- NOTE | 2016-11-20 11:36 | HHI.DCPOC ---
Discharge Care Plan Diagnosis: (1) Rectal bleeding (2) Hypertension, benign Goals to Promote Your Health * To prevent worsening of your condition and complications * To maintain your health at the optimal level Directions to Meet Your Goals Take your medications as prescribed Follow your dietary instruction Follow activity as directed Keep your appointments as scheduled Take your immunizations and boosters as scheduled If your symptoms worsen call your PCP, if no PCP go to Urgent Care Center or Emergency Room Smoking is Dangerous to Your Health. Avoid second hand smoke Call the 24-hour hour crisis hotline for domestic abuse at Charissa Obrien MD R1 November 20, 2016 11:36
--- NOTE | 2016-11-21 13:32 | HHI.DS ---
Discharge Summary Admission Date November 18, 2016 at 19:00 Discharge Date: November 20, 2016 Admitting Diagnosis rectal bleeding (1) Rectal bleeding Diagnosis: Principal Plan: Patient admitted for BRBPR with + Hemoccult. GI consulted. EGD and colonoscopy done on 11/19 showing gastritis, duodenitis, esophagitis, hiatal hernia, Schatski's ring, severe pandiverticulosis with old blood in the colon, and internal and external hemorrhoids. Bleeding scan negative. - Hemodynamically stable - H&H stabilized. Hg up to 8.9 from 8.0 - Coags WNL - Avoid NSAIDs - Protonix 40 mg IV daily (2) Hypertension, benign Diagnosis: Secondary Plan: Stable. Continue home Cozaar. (3) Hypothyroidism Diagnosis: Secondary Plan: Continue home Synthroid 100 mcg daily. (4) Nutrition, metabolism, and development symptoms Diagnosis: Secondary Plan: - Fluids: Tolerating PO - Electrolytes: WNL - Nutrition: Heart healthy diet - DVT Prophylaxis: Hold pharmacological prophylaxis given active GI bleed - GI Prophylaxis: Protonix 40 mg IV daily sdw Dr. Torres, Dr. Sasha Obrien, and Dr. Holbrook [facility] Procedures EGD and Colonoscopy 11/19 Brief History 66yo female presented to ED, sent from Family Medicine office with rectal bleeding. The patient was seen at our clinic last Tuesday for a UTI, which was treated with Cipro and has since resolved. At that time, she discussed using Miralax or Milk of Magnesia for constipation, which has been an issue since her July colonoscopy, which was normal per patient. A family member of the patient had Colace, so she took that instead on Tuesday. On Tuesday, she noticed dark stool with blood mixed in. She continued to take the Colace on Tuesday and Tuesday, and then stopped. She did not take Miralax or Milk of Magnesia. Her dark stools with blood mixed in persisted, and yesterday and today she noticed dime-sized clots in her stool. She reports increased frequency of stools (2-3/day) and increased rectal urgency. The patient's mother was diagnosed with colon cancer at age 60 and from this shortly after diagnosis. She denies daily use of anti-coagulant medications, but reports periodic use of aspirin. She denies nausea, vomiting, abdominal pain , pain with bowel movements, fever, chills, or weight loss. Fingerstick Hemoglobin in [facility] office today was 8.6 (hemoglobin was 12.4 on 01/2016). Digital rectal exam today in office was notable for bright bloody stool. CBC/BMP: 11/20/16 0906 11/20/16 0906 Significant Findings Laboratory Tests Test 11/18/16 11/19/16 11/19/16 11/19/16 18:00 05:56 11:48 19:31 White Blood Count 11.2 TH/MM3 (4.0-11.0) Red Blood Count 3.41 MIL/MM3 2.85 MIL/MM3 (4.00-5.30) (4.00-5.30) Hemoglobin 9.6 GM/DL 8.3 GM/DL 8.2 GM/DL 8.7 GM/DL (11.6-15.3) (11.6-15.3) (11.6-15.3) (11.6-15.3) Hematocrit 30.1 % 24.9 % 24.8 % 25.8 % (35.0-46.0) (35.0-46.0) (35.0-46.0) (35.0-46.0) Chloride Level 108 MEQ/L 108 MEQ/L (98-107) (98-107) Estimat Glomerular Filtration 81 ML/MIN (>89) Rate Aspartate Amino Transf 47 U/L (15-37) (AST/SGOT) Calcium Level 7.8 MG/DL (8.5-10.1) Test 11/20/16 11/20/16 01:08 09:06 Hemoglobin 8.0 GM/DL 8.9 GM/DL (11.6-15.3) (11.6-15.3) Hematocrit 24.0 % 27.0 % (35.0-46.0) (35.0-46.0) Red Blood Count 3.08 MIL/MM3 (4.00-5.30) Myelocytes 2 % (0-0) Chloride Level 112 MEQ/L (98-107) Blood Urea Nitrogen 6 MG/DL (7-18) Calcium Level 8.3 MG/DL (8.5-10.1) Imaging Last Impressions GI Bleed Scan Nuclear Medicine 11/19/16 0000 Signed Impressions: Service Date/Time: Saturday, November 19, 2016 12:52 - CONCLUSION: Negative exam. Pawan Breaux MD PE at Discharge GENERAL: WN, WD female sitting up in bed in good spirits. SKIN: Warm and dry without rash. HEENT: Pupils equal and round. No nasal drainage. MMM. HEART: RRR no m/r/g. LUNGS: CTAB without wheezes or crackles. ABDOMEN: Soft, NT, ND. EXTREMITIES: No LE edema. NEURO: Awake and alert. Hospital Course Patient is a [facility] patient of Dr. Dumont, admitted on November 18 for work-up of rectal bleeding and diarrhea, reportedly large volume, painless as well as Hgb drop (outpatient) from approx 12 to approx 9. No abdominal pain, nausea or vomiting, or systemic symptoms to suggest infection. Her last colonoscopy was July 2016, notable for diverticulosis and no polyps per patient. Cipro had been administered for one week just prior to admission for unrelated UTI. C diff toxin was negative on evaluation this hospital stay. She was started on IV PPI and Cipro in ED, and given Golytely prep. She underwent sequeira-endoscopy November 19, notable for duodenitis, esophagitis distal esophagus, hiatal hernia, Schatzki's ring, and severe sequeira-diverticulosis + numerous internal and external hemorrhoids. Biopsies pending from EGD. NM was performed as well, unremarkable. Hgb remained stable during hospitalization. Patient was cleared for discharge on November 20 by GI and admitting teams. She will follow-up with PCP and GI within one to two weeks and get follow-up CBC within one week. She was given diverticulitis diet information prior to discharge and was given PPI. Pt Condition on Discharge: Stable Discharge Disposition: Discharge Home Discharge Instructions DIET: Follow Instructions for: Heart Healthy Diet, Gastroesophageal Reflux Activities you can perform: Regular-No Restrictions Follow up Referrals: Gastroenterology - 2 Weeks with Krystle Lozano MD PCP Follow-up - 1 Week with Franco Melton MD New Orders: CBC NO DIFF - 3-5 Days New Medications: Ondansetron Odt (Zofran Odt) 4 Mg Tab 4 MG SL Q6HR PRN Nausea/Vomiting #30 Ref 0 TAB Pantoprazole (Protonix) 40 Mg Tab 40 MG PO DAILY Ulcer Prevention #30 Ref 0 TAB Continued Medications: Bioflavonoid Products (Bioflex) 1 Tab 1 TAB PO DAILY Levothyroxine (Levothyroxine) 100 Mcg Tab 100 MCG PO DAILY Thyroid #30 Ref 0 TAB Losartan (Losartan) 50 Mg Tab 50 MG PO DAILY Blood Pressure Management #30 Ref 0 TAB Multiple Vitamins W/ Minerals (Hair Skin and Nails Formu) 1 Tab Tab 2 TAB PO DAILY Discontinued Medications: Meloxicam (Meloxicam) 7.5 Mg Tab 7.5 MG PO DAILY Arthritis Pain #60 Ref 1 TAB Charissa Obrien MD R1 November 21, 2016 13:31
[2016-11-30] MEDS ORDERED: FERR325T PO (09:12)
[2016-12-14] MEDS ORDERED: DOXY100T PO (16:03)
[2016-12-17] MEDS ORDERED: CELE200C PO (13:59)
[2016-12-17] MEDS ORDERED: ferrous sulfate (14:02)
== END 2016-11-20 12:43 | disposition home or self-care (01) ==
LOC: NEPC 15:39 → NEDA 19:00 → NEPFCDU 20:55
PROVIDERS: ADMIT Family Medicine; ATTEND Family Medicine
DX: K29.50 Unspecified chronic gastritis without bleeding (principal); K62.5 Hemorrhage of anus and rectum; K29.80 Duodenitis without bleeding; K20.9 Esophagitis, unspecified; K44.9 Diaphragmatic hernia without obstruction or gangrene; K22.2 Esophageal obstruction; K57.30 Diverticulosis of large intestine without perforation or abscess without bleeding; D62 Acute posthemorrhagic anemia; K64.4 Residual hemorrhoidal skin tags; K64.8 Other hemorrhoids; E03.9 Hypothyroidism, unspecified; I10 Essential (primary) hypertension; Z80.0 Family history of malignant neoplasm of digestive organs
CPT/HCPCS: 43239; 45378; 78278; 80048; 80053; 82272; 85007; 85014; 85018; 85025; 85027; 85610; 85730; 86850; 86900; 86901; 87493; 88305; 88312; 93005; 99284; A9560; C9113; G0378; J2250; J7030

== ENCOUNTER → 2016-11-26 | Outpatient (CLI) | payer OTHER ==
[~2016-11-26] MED LIST changes: +CELE200C PO; -CIPR-9 PO; +DOXY100T PO; +FERR325T PO; -MELO7.5T4 PO; -MILKSUS PO; -MIRA33504 PO; +PROT40TA PO; +ZOFR4TAB3 SL; +ferrous sulfate
[2016-11-26 11:27] LABS: MEAN CELL VOLUME 87.6 FL (80.0-100.0); MEAN CORPUSCULAR HEMOGLOBIN 28.4 PG (27.0-34.0); MEAN CORPUSCULAR HGB CONC 32.4 % (32.0-36.0); PLATELET COUNT 251 TH/MM3 (150-450); RED BLOOD COUNT 3.42 MIL/MM3 (4.00-5.30); REVIEW FLAG FINAL; WHITE BLOOD COUNT 9.3 TH/MM3 (4.0-11.0)
== END ==
LOC: CLAB 10:54
PROVIDERS: ATTEND Family Medicine
DX: K62.5 Hemorrhage of anus and rectum (principal); E03.9 Hypothyroidism, unspecified; N39.0 Urinary tract infection, site not specified
CPT/HCPCS: 36415; 84443; 85027; 87086

== ENCOUNTER → 2016-12-16 | Outpatient (CLI) | payer OTHER ==
[~2016-12-16] MED LIST changes: -ZOFR4TAB3 SL
[2016-12-16 10:14] LABS: HEMATOCRIT 34.9 % (35.0-46.0); REVIEW FLAG FINAL
== END ==
LOC: CLAB 09:42
PROVIDERS: ATTEND Family Medicine
DX: D50.9 Iron deficiency anemia, unspecified (principal)
CPT/HCPCS: 36415; 85014; 85018

== ENCOUNTER → 2017-01-05 | Outpatient (CLI) | payer OTHER ==
[~2017-01-05] MED LIST changes: -FERR325T PO; -MULT1TAB99 PO
[2017-01-05 12:18] LABS: HEMATOCRIT 38.5 % (35.0-46.0); REVIEW FLAG FINAL
== END ==
LOC: CLAB 11:35
PROVIDERS: ATTEND Family Medicine
DX: D50.9 Iron deficiency anemia, unspecified (principal)
CPT/HCPCS: 36415; 85014; 85018

== ENCOUNTER 2017-05-31 17:50 | Emergency (ER) | payer OTHER ==
[~2017-05-31] VITALS: Ht 165.1 cm; Wt 121.6 kg
[2017-05-31 17:56] VITALS: BP 155/75; PULSE 106; RESP 18; TEMP 97.6; O2SAT 94
[2017-05-31] MEDS ORDERED: CYCL5TAB PO (20:41)
[2017-05-31] MEDS ORDERED: NAPR500T2 PO (20:41)
[2017-05-31] MEDS ORDERED: KETOROLAC TROMETHAMINE 60 MG/2 ML (IM) VIAL IM ONE (20:45)
[2017-05-31] MEDS ORDERED: ORPHENADRINE INJ 60 MG/2 ML AMP IM ONE (20:45)
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
[2017-06-07] MEDS ORDERED: NEUR100C PO (10:57)
== END 2017-05-31 21:04 | disposition home or self-care (01) ==
LOC: PHEFT 17:50
DX: M54.2 Cervicalgia (principal); V89.2XXA Person injured in unspecified motor-vehicle accident, traffic, initial encounter
CPT/HCPCS: 72125; 96372; 99285; J1885; J2360